=== PATIENT | male | born 1960 | race Caucasian/White ===

== ENCOUNTER 2016-08-13 11:23 | Outpatient (CLI) | payer OTHER | END 2016-08-13 11:24 | disposition home or self-care (01) | DX: I10 Essential (primary) hypertension (principal) ==

== ENCOUNTER → 2017-02-21 | Outpatient (CLI) | payer OTHER ==
[2017-02-21 18:44] LABS: BUN - BLOOD UREA NITROGEN 16 mg/dL (6-20); CALCIUM 9.1 mg/dL (8.5-10.3); CARBON DIOXIDE - CO2 26 mmol/L (21-32); CHLORIDE 100 mmol/L (101-111); CHOL/HDL RATIO 2.6 (<5.0); CHOLESTEROL 127 mg/dL; CREATININE 0.9 mg/dL (0.6-1.2); GFR - MDRD 88 (>89); GLUCOSE 95 mg/dL (70-100); HDL CHOLESTEROL 48 mg/dL; LDL/HDL RATIO 1.3 (<3.6); POTASSIUM 3.9 mmol/L (3.5-5.0); SODIUM 136 mmol/L (135-145); TRIGLYCERIDES 74 mg/dL; VLDL CHOLESTEROL 15 mg/dL
== END ==
LOC: LAB.F 08:00
PROVIDERS: ATTEND Internal Medicine
DX: E78.5 Hyperlipidemia, unspecified (principal); I10 Essential (primary) hypertension
CPT/HCPCS: 36415; 80048; 80061

== ENCOUNTER 2017-12-21 09:35 | Outpatient (CLI) | payer OTHER ==
[2017-12-21 18:06] LABS: CALCIUM 9.2 mg/dL (8.5-10.3); CREATININE 0.9 mg/dL (0.6-1.2)
== END 2017-12-21 09:36 | disposition home or self-care (01) ==
LOC: LAB.F 09:35
PROVIDERS: ATTEND Nurse Practitioner
DX: E78.4 Other hyperlipidemia (principal)
CPT/HCPCS: 36415; 80048

== ENCOUNTER 2018-06-13 11:12 | Outpatient (CLI) | payer OTHER ==
[2018-06-13 17:41] LABS: CALCIUM 9.3 mg/dL (8.5-10.3); CREATININE 0.6 mg/dL (0.6-1.2)
== END 2018-06-13 11:13 | disposition home or self-care (01) ==
LOC: LAB.F 11:12
PROVIDERS: ATTEND Nurse Practitioner
DX: E78.49 Other hyperlipidemia (principal)
CPT/HCPCS: 36415; 80048